=== PATIENT | female | born 1950 | race Caucasian/White ===

== ENCOUNTER → 2021-09-20 | Outpatient (CLI) | payer MEDICARE, OTHER | LOC: KOH-I 10:00 | DX: M75.102 Unspecified rotator cuff tear or rupture of left shoulder, not specified as traumatic (principal); M19.012 Primary osteoarthritis, left shoulder | CPT/HCPCS: 73200 ==

== ENCOUNTER → 2021-11-30 | Outpatient (CLI) | payer MEDICARE, OTHER | LOC: EMI 10:45 | DX: R53.1 Weakness (principal); M75.121 Complete rotator cuff tear or rupture of right shoulder, not specified as traumatic | CPT/HCPCS: 73221 ==

== ENCOUNTER → 2021-12-08 | Outpatient (CLI) | payer MEDICARE, OTHER ==
[~2021-12-08] MED LIST: ESCITALOPRAM OXA5 MG PO; JARDIANCE25 MG PO; LEVOTHYROXINE100 MC2 PO; LIPITOR TAB 1010 MG PO; METOPROLOL SUCC50 MG PO; OMEPRAZOLE20 M1 PO; PREMARIN0.625 MG PO; VALSARTAN-HCTZ1 EAC4 PO
[2021-12-08 11:13] LABS: RED BLOOD COUNT 4.97 M/UL (4.00-5.10); WHITE BLOOD COUNT 7.2 K/UL (4.5-11.0)
[2021-12-08 11:15] LABS: BUN/CREATININE RATIO 21 (0-10)
== END ==
LOC: OPSV2 09:00 → EDSTATUS 09:00 → OPSV2 10:03
PROVIDERS: Orthopaedic Surgery
DX: Z01.818 Encounter for other preprocedural examination (principal); M75.102 Unspecified rotator cuff tear or rupture of left shoulder, not specified as traumatic
CPT/HCPCS: 36415; 80048; 83036; 85025; 93005

== ENCOUNTER → 2021-12-21 | Outpatient (CLI) | payer MEDICARE, OTHER ==
[2021-12-21 13:41] LABS: BUN/CREATININE RATIO 21 (0-10)
== END ==
LOC: LAB 12:56
PROVIDERS: Orthopaedic Surgery
DX: Z01.812 Encounter for preprocedural laboratory examination (principal)
CPT/HCPCS: 36415; 80048; 86850; 86900; 86901

== ENCOUNTER → 2021-12-22 | Day surgery (SDC) | payer MEDICARE, OTHER | END | disposition home or self-care (01) | LOC: OR 05:26 → EDSTATUS 10:15 → OR 10:15 | DX: M75.102 Unspecified rotator cuff tear or rupture of left shoulder, not specified as traumatic (principal); R29.818 Other symptoms and signs involving the nervous system; M25.712 Osteophyte, left shoulder; M75.101 Unspecified rotator cuff tear or rupture of right shoulder, not specified as traumatic; S43.431A Superior glenoid labrum lesion of right shoulder, initial encounter; M75.51 Bursitis of right shoulder; M75.41 Impingement syndrome of right shoulder; I10 Essential (primary) hypertension; K21.9 Gastro-esophageal reflux disease without esophagitis; E78.5 Hyperlipidemia, unspecified; E11.9 Type 2 diabetes mellitus without complications; Z88.8 Allergy status to other drugs, medicaments and biological substances; X58.XXXA Exposure to other specified factors, initial encounter | CPT/HCPCS: 73020; 82962; 97165; C1713; C1776; J0690; J1100; J2001; J2250; J2405; J2704; J2795; J3010; J3370 ==

== ENCOUNTER → 2022-01-22 | Outpatient (CLI) | payer MEDICARE, OTHER | LOC: KOH-I 14:07 | DX: M79.671 Pain in right foot (principal) | CPT/HCPCS: 73630 ==